=== PATIENT | male | born 1945 | race Asian ===

== ENCOUNTER 2017-03-31 17:17 | Emergency (ER) | payer MEDICARE, OTHER ==
[~2017-03-31] VITALS: Ht 190.5 cm; Wt 86.4 kg
[2017-03-31] MEDS ORDERED: LISI-662 PO (17:23)
[2017-03-31] MEDS ORDERED: METF500T4 PO (17:23)
[2017-03-31] MEDS ORDERED: INS7030 SQ (17:23)
[2017-03-31] MEDS ORDERED: PROZ10 PO (17:23)
[2017-03-31] MEDS ORDERED: ATEN50TA PO (17:27)
[2017-03-31] MEDS ORDERED: CALC-1038 PO (17:27)
[2017-03-31] MEDS ORDERED: SIMV-259 PO (17:27)
[2017-03-31] MEDS ORDERED: ASPI-989 PO (17:27)
[2017-03-31 17:30] LABS: GLUCOSE,POINT OF CARE 154 MG/DL (70-110)
[2017-03-31 18:57] VITALS: BP 140/90
== END 2017-03-31 21:23 | disposition home or self-care (01) ==
LOC: EMS 17:19
DX: S39.012A Strain of muscle, fascia and tendon of lower back, initial encounter (principal); G81.94 Hemiplegia, unspecified affecting left nondominant side; E11.9 Type 2 diabetes mellitus without complications; E78.00 Pure hypercholesterolemia, unspecified; I10 Essential (primary) hypertension; Z86.73 Personal history of transient ischemic attack (TIA), and cerebral infarction without residual deficits; Z88.8 Allergy status to other drugs, medicaments and biological substances; Z79.82 Long term (current) use of aspirin; Z79.4 Long term (current) use of insulin; W05.0XXA Fall from non-moving wheelchair, initial encounter; Y93.89 Activity, other specified; Y92.89 Other specified places as the place of occurrence of the external cause; Y99.8 Other external cause status
CPT/HCPCS: 70450; 72131; 82962; 99284